=== PATIENT | male | born 1995 | race Caucasian/White ===

== ENCOUNTER → 2023-11-04 08:24 | Outpatient (CLI) | payer OTHER, SELFPAY ==
--- NOTE | 2023-11-04 08:27 | DI.RAD.S_ITS ---
PROCEDURE: FL UPPER GI SERIES INDICATIONS: Gastro-esophageal reflux disease COMPARISON: None. FINDINGS: KUB: Preprocedural box sorter film demonstrates a normal bowel gas pattern. No suspicious abdominal calcifications. Visualized solid organ contours appear normal. Bony structures appear unremarkable. Esophagus: Esophageal mucosa is normal on air-contrast views. On single-contrast views, there is normal esophageal peristalsis. No strictures, extrinsic mass effects, or diverticula. No hiatal hernia or elicited gastroesophageal reflux. There is normal transit of a calibrated barium tablet through the esophagus. Stomach: The stomach is normally distensible, with normal rugal fold thickness. No mucosal masses or ulcers. IMPRESSION: Normal exam. Dictated by: Familia Broderick M.D. on 11/04/2023 at 11:17 Approved by: Familia Broderick M.D. on 11/04/2023 at 11:18
== END ==
LOC: RAD 08:26
PROVIDERS: Referring Provider Internal Medicine; Visit Provider Internal Medicine
DX: K21.9 Gastro-esophageal reflux disease without esophagitis (principal)
CPT/HCPCS: 74240